=== PATIENT | female | born 1985 | race African-American/Black ===

== ENCOUNTER 2019-05-19 08:29 | Emergency (ER) | payer BC ==
[2019-05-19] MEDS ORDERED: Ibuprofen 400 MG Tab PO ONE (08:50)
[2019-05-19] MEDS ORDERED: Acetaminophen 325 MG Tab PO ONE (08:50)
--- NOTE | 2019-05-19 08:55 | EDM.PDOC ---
ED HPI GENERAL MEDICAL PROBLEM - General Chief Complaint: Respiratory Problem Stated Complaint: BAD COUGH VOMITING Time Seen by Provider: 05/19/19 08:53 Source of Information: Reports: Patient History Limitations: Reports: No Limitations - History of Present Illness INITIAL COMMENTS - FREE TEXT/NARRATIVE: Patient is a 33-year-old female with no past medical history presenting with 4 days of cough and sore throat. Patient states her symptom started on Thursday when she is experiencing body aches and fevers. Patient states symptoms have progressed and she has been coughing more frequently. Patient states last night she had a heavy coughing fit after which she experienced posttussive vomiting. She denies feeling nauseous or experiencing any abdominal pain. Patient has sick contact with a 7-year-old son who was recently sick. Patient took NyQuil with only minimal improvement of symptoms. Denies rashes or recent travel. In addition to that documented in the HPI above, the additional ROS was obtained : Constitutional: Denies fevers or chills Eyes: Denies vision changes ENMT: Per HPI CV: Denies chest pain Resp: Denies SOB GI: Per HPI : Denies painful urination MSK: Denies recent trauma Skin: Denies new rashes Neuro: Denies new numbness or tingling or weakness Endocrine: Denies unexpected weight loss Heme: Denies bleeding disorders I have reviewed the triage vital signs Const: Well nourished, well developed, appears stated age Eyes: PERRL, no conjunctival injection HENT: NCAT, Neck supple without meningismus CV: RRR, Warm, well-perfused extremities RESP: CTAB, Unlabored respiratory effort GI: soft, non-tender, non-distended, no masses MSK: No gross deformities appreciated Skin: Warm, dry. No rashes Neuro: Alert, medical assistant dermatology II-XII grossly intact. Sensation and motor function of extremities grossly intact. Psych: Appropriate mood and affect Assessment and plan: Patient is a 33-year-old female with no past medical history presenting with upper respiratory infection type symptoms. Patient has no evidence of peritonsillar abscess, severe influenza, pneumonia. Patient will be treated with supportive care. Patient is influenza A positive but there is no indication for Tamiflu at this time. Patient will be treated with supportive care as an outpatient. Patient given return precautions. All questions addressed and answered. Patient agrees with plan - Related Data Allergies Allergy/AdvReac Type Severity Reaction Status Date / Time No Known Allergies Allergy Verified 05/19/19 08:43 Home Meds: Home Meds . [No Known Home Meds] 05/19/19 [History] Past Medical History HEENT History: Reports: None Cardiovascular History: Reports: None Respiratory History: Reports: None Gastrointestinal History: Reports: None Genitourinary History: Reports: None LAST WAXER History: Reports: None Musculoskeletal History: Reports: None Neurological History: Reports: None Psychiatric History: Reports: None Endocrine/Metabolic History: Reports: None Hematologic History: Reports: None Immunologic History: Reports: None Oncologic (Cancer) History: Reports: None Dermatologic History: Reports: None - Past Surgical History Head Surgeries/Procedures: Reports: None HEENT Surgical History: Reports: None Cardiovascular Surgical History: Reports: None Respiratory Surgical History: Reports: None GI Surgical History: Reports: None Female Surgical History: Reports: None Endocrine Surgical History: Reports: None Neurological Surgical History: Reports: None Musculoskeletal Surgical History: Reports: None Oncologic Surgical History: Reports: None Dermatological Surgical History: Reports: None Social & Family History - Family History Family Medical History: Noncontributory - Tobacco Use Smoking Status *Q: Never Smoker Second Hand Smoke Exposure: No - Caffeine Use Caffeine Use: Reports: Coffee - Recreational Drug Use Recreational Drug Use: No ED ROS GENERAL - Review of Systems Review Of Systems: See Below ED EXAM, GENERAL - Physical Exam Exam: See Below Course - Vital Signs Last Recorded V/S: Last Vital Signs Temp 36.5 C 05/19/19 08:43 Pulse 114 H 05/19/19 08:43 Resp 18 05/19/19 08:43 BP 130/86 05/19/19 08:43 Pulse Ox 95 05/19/19 08:43 - Orders/Labs/Meds Orders: Active Orders 24 hr Category Date Time Status CULTURE STREP A CONFIRMATION [] Stat Lab 05/19/19 08:34 Results STREP SCRN A RAPID W CULT CONF [RM] Stat Lab 05/19/19 08:34 Results Meds: Medications Discontinued Medications Generic Name Dose Route Start Last Admin Trade Name Freq PRN Reason Stop Dose Admin Acetaminophen 650 mg 05/19/19 08:50 05/19/19 08:59 Tylenol PO 05/19/19 08:51 650 mg NOW ONE Administration Ibuprofen 400 mg 05/19/19 08:50 05/19/19 08:59 Motrin PO 05/19/19 08:51 400 mg ONETIME ONE Administration Departure - Departure Time of Disposition: 09:21 Disposition: Home, Self-Care 01 Clinical Impression: Influenza - Discharge Information Referrals: PCP,None [Primary Care Provider] - Forms: ED Department Discharge Sepsis Event Note - Evaluation Sepsis Screening Result: No Definite Risk - Focused Exam Vital Signs: Vital Signs Temp Pulse Resp BP Pulse Ox 05/19/19 08:43 36.5 C 114 H 18 130/86 95 Date Exam was Performed: 05/19/19 Time Exam was Performed: : - My Orders Last 24 Hours: My Active Orders 05/19/19 08:34 CULTURE STREP A CONFIRMATION [RM] Stat STREP SCRN A RAPID W CULT CONF [RM] Stat - Assessment/Plan Last 24 Hours: My Active Orders 05/19/19 08:34 CULTURE STREP A CONFIRMATION [RM] Stat STREP SCRN A RAPID W CULT CONF [RM] Stat
== END 2019-05-19 09:35 | disposition home or self-care (01) ==
LOC: MW.ED 08:29
DX: J11.1 Influenza due to unidentified influenza virus with other respiratory manifestations (principal)
CPT/HCPCS: 87081; 87804; 87880; 99284; A9270; 99283